=== PATIENT | female | born 1995 | race African-American/Black ===

== ENCOUNTER 2021-05-04 15:15 | Emergency (ER) | payer OTHER ==
[~2021-05-04] VITALS: Ht 160 cm; Wt 86.6 kg
[2021-05-04] MEDS ORDERED: GI COCKTAIL 50ML BTL(HYOSCYAMINE/MAALOX/LIDOCAINE VISCOUS)(1:3:1) PO ONE (16:40)
[2021-05-04] MEDS ORDERED: PANT20TA6 PO (17:22)
[2021-05-04 17:24] VITALS: BP 130/80
[2021-05-04] MEDS ORDERED: PANTOPRAZOLE 20 MG TAB PO ONE (17:25)
== END 2021-05-04 17:40 | disposition home or self-care (01) ==
LOC: M ED 15:15
DX: K21.9 Gastro-esophageal reflux disease without esophagitis (principal)

== ENCOUNTER 2021-07-26 10:51 | Emergency (ER) | payer MEDICAID, OTHER, SELFPAY ==
[~2021-07-26] VITALS: Ht 160 cm; Wt 85.6 kg
[~2021-07-26 10:51] MED LIST: PANT20TA6 PO
[2021-07-26] MEDS ORDERED: NAPR220C14 PO (10:56)
[2021-07-26] MEDS ORDERED: KETOROLAC 60MG 2ML VIAL IM ONE (12:50)
[2021-07-26] MEDS ORDERED: LIDOCAINE 5% (LIDODERM) PATCH TD ONE (12:50)
[2021-07-26] MEDS ORDERED: diazePAM 5MG TABLET PO ONE (12:50)
[2021-07-26] MEDS ORDERED: NAPR-837 PO (13:41)
[2021-07-26] MEDS ORDERED: METH-1165 PO (13:41)
[2021-07-26] MEDS ORDERED: ASPE4PAD TOP (13:41)
[2021-07-26 13:56] VITALS: BP 136/90
[2021-07-26] MEDS ORDERED: **NOTE PATIENT COMMENT** MISC XX SCH (21:00)
== END 2021-07-26 14:03 | disposition home or self-care (01) ==
LOC: M ED 10:51
DX: M54.6 Pain in thoracic spine (principal); Z79.899 Other long term (current) drug therapy
CPT/HCPCS: 72072; 96372; 99283; J1885

== ENCOUNTER 2021-12-25 13:37 | Emergency (ER) | payer MEDICAID, OTHER ==
[~2021-12-25] VITALS: Ht 162.6 cm; Wt 87.3 kg
[~2021-12-25 13:37] MED LIST changes: +ASPE4PAD TOP; +METH-1165 PO; +NAPR-837 PO; +NAPR220C14 PO
[2021-12-25 13:41] VITALS: BP 141/97
== END 2021-12-25 16:11 | disposition left against medical advice (07) ==
LOC: M ED 13:37
DX: Z53.21 Procedure and treatment not carried out due to patient leaving prior to being seen by health care provider (principal)

== ENCOUNTER → 2021-12-28 | Outpatient (REF) ==
[2021-12-28 14:31] LABS: RSV AMPLIFICATION NEGATIVE (NEGATIVE)
== END ==
LOC: M LABSMTC 10:55
PROVIDERS: ATTEND Family Medicine
DX: Z11.52 Encounter for screening for COVID-19 (principal)

== ENCOUNTER → 2022-02-19 | Outpatient (REF) ==
[2022-02-19 13:34] LABS: RSV AMPLIFICATION NEGATIVE (NEGATIVE)
== END ==
LOC: M LABSMTC 10:38
PROVIDERS: ATTEND Family Medicine
DX: Z11.59 Encounter for screening for other viral diseases (principal)

== ENCOUNTER 2022-02-26 13:08 | Emergency (ER) | payer OTHER ==
[~2022-02-26] VITALS: Ht 160 cm; Wt 89.6 kg
[2022-02-26 13:10] VITALS: BP 142/77
== END 2022-02-26 14:10 | disposition left against medical advice (07) ==
LOC: M ED 13:08
DX: Z53.21 Procedure and treatment not carried out due to patient leaving prior to being seen by health care provider (principal)

== ENCOUNTER → 2022-02-26 | Outpatient (CLI) | payer OTHER | LOC: M WUC 14:35 | PROVIDERS: ATTEND Physician Assistant | DX: M54.32 Sciatica, left side (principal) ==

== ENCOUNTER → 2022-03-04 | Outpatient (REF) | LOC: M LABSMTC 11:11 | PROVIDERS: ATTEND Family Medicine | DX: Z20.822 Contact with and (suspected) exposure to COVID-19 (principal) ==

== ENCOUNTER 2022-03-12 11:09 | Emergency (ER) | payer OTHER ==
[~2022-03-12] VITALS: Ht 160 cm; Wt 86.6 kg
[2022-03-12] MEDS ORDERED: IBUP80TA (11:42)
[2022-03-12] MEDS ORDERED: ASPI81CH33 PO (11:42)
[2022-03-12] MEDS ORDERED: CYCL-707 (11:42)
[2022-03-12 12:32] LABS: BASO % 0.3 % (0.0-1.0); EOS # 0.1 10^3/uL (0.0-0.5); EOS % 0.7 % (0.0-3.0); HEMATOCRIT 38.1 % (36.0-47.0); HEMOGLOBIN 12.9 g/dl (12.0-15.5); LYMPH # 2.1 10^3/uL (1.5-5.0); LYMPH % 21.7 % (24.0-44.0); MEAN CORPUSCULAR HEMOGLOBIN 28.5 pg (27.0-33.0); MEAN CORPUSCULAR HGB CONC 33.9 g/dl (32.0-36.5); MEAN CORPUSCULAR VOLUME 84.1 fl (80.0-96.0); MONO # 0.5 10^3/uL (0.0-0.8); MONO % 4.6 % (2.0-8.0); NEUTROPHILS # 7.1 10^3/uL (1.5-8.5); NEUTROPHILS % 72.4 % (36.0-66.0); PLATELET COUNT, AUTOMATED 281 10^3/uL (150-450); RED BLOOD COUNT 4.53 10^6/uL (4.00-5.40); WHITE BLOOD COUNT 9.8 10^3/uL (4.0-10.0)
[2022-03-12 12:52] LABS: ALBUMIN 3.8 G/DL (3.2-5.2); BILIRUBIN,DIRECT 0.2 MG/DL (<0.4); BILIRUBIN,TOTAL 0.7 MG/DL (0.3-1.2); TOTAL PROTEIN 7.3 G/DL (5.7-8.2)
[2022-03-12] MEDS ORDERED: ISOVUE-370 76% 100ML VIAL As Ordered ONE (13:07)
[2022-03-12 14:06] VITALS: BP 128/77
[2022-03-12] MEDS ORDERED: ONDANSETRON 4MG ORAL DISINTEGRATING TAB PO ONE (14:35)
== END 2022-03-12 14:41 | disposition home or self-care (01) ==
LOC: M ED 11:09
DX: R07.9 Chest pain, unspecified (principal); K21.9 Gastro-esophageal reflux disease without esophagitis

== ENCOUNTER → 2022-03-22 | Outpatient (REF) | payer OTHER ==
[~2022-03-22] MED LIST changes: +ACET-683 PO; +AMOX875T; +ASPI81CH33 PO; +CYCL-707; +CYCL-707 PO; +ENSK1TAB3; +IBUP-1022 PO; +IBUP80TA; +OMEP-173
[2022-03-22 18:51] LABS: APPEARANCE, URINE MANUAL CLEAR (CLEAR); BILIRUBIN, URINE MANUAL NEGATIVE (NEGATIVE); BLOOD URINE MANUAL NEGATIVE (NEGATIVE); COLOR, URINE MANUAL LT YELLOW (YELLOW); GLUCOSE, URINE (UA) MANUAL NEGATIVE (NEGATIVE); KETONE, URINE MANUAL NEGATIVE (NEGATIVE); LEUKOCYTE ESTERASE, URINE MAN POSITIVE (NEGATIVE); NITRITE, URINE MANUAL POSITIVE (NEGATIVE); PROTEIN, URINE MANUAL NEGATIVE (NEGATIVE); UROBILINOGEN, URINE MANUAL NORMAL (NORMAL)
[2022-03-22 19:53] LABS: BACTERIA, URINE LARGE AMOUNT; HYALINE CAST, URINE NONE SEEN /lpf (0-1); RBC, URINE 0-1 /hpf (0-3); SQUAMOUS EPITHELIAL CELL URINE SMALL AMOUNT /hpf (SMALL AMT); WBC, URINE 30-40 /hpf (0-3)
== END ==
LOC: M SFHCLERA 10:09
PROVIDERS: ATTEND Physician Assistant
DX: R11.0 Nausea (principal)

== ENCOUNTER → 2022-04-10 | Outpatient (REF) ==
[~2022-04-10] MED LIST changes: -ACET-683 PO; -AMOX875T; -CYCL-707 PO; -ENSK1TAB3; -IBUP-1022 PO; -OMEP-173
== END ==
LOC: M LABSMTC 09:46
PROVIDERS: ATTEND Family Medicine
DX: Z11.52 Encounter for screening for COVID-19 (principal)

== ENCOUNTER 2022-04-11 23:01 | Emergency (ER) | payer OTHER ==
[~2022-04-11] VITALS: Ht 160 cm; Wt 86.4 kg
[2022-04-11 23:02] VITALS: BP 157/90
[2022-04-11] MEDS ORDERED: IBUPROFEN 600MG TAB PO ONE (23:40)
[2022-04-11] MEDS ORDERED: ACETAMINOPHEN TAB 650MG DOSE (2X325MG) PO ONE (23:40)
== END 2022-04-12 02:03 | disposition left against medical advice (07) ==
LOC: M ED 23:01
DX: Z53.21 Procedure and treatment not carried out due to patient leaving prior to being seen by health care provider (principal)

== ENCOUNTER 2022-04-23 14:03 | Emergency (ER) | payer OTHER ==
[~2022-04-23] VITALS: Ht 160 cm; Wt 85.9 kg
[2022-04-23 14:05] VITALS: BP 138/71
[2022-04-23] MEDS ORDERED: ENSK1TAB3 (14:19)
[2022-04-23] MEDS ORDERED: AMOX875T (14:19)
[2022-04-23] MEDS ORDERED: OMEP-173 (14:19)
[2022-04-23] MEDS ORDERED: ACET-683 PO (14:20)
[2022-04-23] MEDS ORDERED: CYCL-707 PO (15:15)
[2022-04-23] MEDS ORDERED: IBUP-1022 PO (15:15)
== END 2022-04-23 15:25 | disposition home or self-care (01) ==
LOC: M ED 14:03
DX: M54.18 Radiculopathy, sacral and sacrococcygeal region (principal); Z79.1 Long term (current) use of non-steroidal anti-inflammatories (NSAID); Z79.83 Long term (current) use of bisphosphonates; Z79.899 Other long term (current) drug therapy

== ENCOUNTER 2022-05-31 12:43 | Emergency (ER) | payer OTHER ==
[~2022-05-31] VITALS: Ht 160 cm; Wt 86.8 kg
[~2022-05-31 12:43] MED LIST changes: +ACET-683 PO; +AMOX875T; +CYCL-707 PO; +ENSK1TAB3; +IBUP-1022 PO; +OMEP-173
[2022-05-31] MEDS ORDERED: ONDANSETRON 4MG 2ML VIAL IV ONE (13:15)
[2022-05-31] MEDS ORDERED: NS 1,000 ML IV ONE (13:15)
[2022-05-31] MEDS ORDERED: KETOROLAC 30 MG/ML 1ML VIAL IV ONE (13:15)
[2022-05-31 13:34] LABS: BASO # 0.1 10^3/uL (0.0-0.2); BASO % 0.5 % (0.0-1.0); EOS # 0.1 10^3/uL (0.0-0.5); EOS % 0.8 % (0.0-3.0); HEMOGLOBIN 12.4 g/dl (12.0-15.5); LYMPH # 2.5 10^3/uL (1.5-5.0); LYMPH % 25.3 % (24.0-44.0); MEAN CORPUSCULAR HEMOGLOBIN 29.5 pg (27.0-33.0); MEAN CORPUSCULAR HGB CONC 35.4 g/dl (32.0-36.5); MEAN CORPUSCULAR VOLUME 83.1 fl (80.0-96.0); MONO # 0.5 10^3/uL (0.0-0.8); MONO % 4.6 % (2.0-8.0); NEUTROPHILS # 6.7 10^3/uL (1.5-8.5); NEUTROPHILS % 68.3 % (36.0-66.0); PLATELET COUNT, AUTOMATED 268 10^3/uL (150-450); RED BLOOD COUNT 4.21 10^6/uL (4.00-5.40); WHITE BLOOD COUNT 9.8 10^3/uL (4.0-10.0)
[2022-05-31] MEDS ORDERED: ISOVUE-370 76% 100ML VIAL As Ordered ONE (13:56)
[2022-05-31 14:02] LABS: ALBUMIN 3.5 G/DL (3.2-5.2); BILIRUBIN,DIRECT 0.1 MG/DL (<0.4); BILIRUBIN,TOTAL 0.5 MG/DL (0.3-1.2); TOTAL PROTEIN 7.2 G/DL (5.7-8.2)
[2022-05-31] MEDS ORDERED: CYCL-707 PO (15:46)
[2022-05-31 16:09] VITALS: BP 132/79
== END 2022-05-31 16:12 | disposition home or self-care (01) ==
LOC: M ED 12:43
DX: R10.31 Right lower quadrant pain (principal); K21.9 Gastro-esophageal reflux disease without esophagitis; Z79.899 Other long term (current) drug therapy
CPT/HCPCS: 74177; 80047; 80076; 81001; 83605; 83690; 84702; 85025; 96374; 96375; 99284; J1885; J2405; Q9967